=== PATIENT | female | born 1965 | race Caucasian/White ===

== ENCOUNTER → 2020-07-17 | Outpatient (CLI) | payer BC ==
[2020-07-17 10:59] LABS: HEMOGLOBIN 14.8 gm/dl (12.3-15.3); RED BLOOD COUNT 5.14 M/UL (4.00-5.10); WHITE BLOOD COUNT 8.6 K/UL (4.5-11.0)
[2020-07-17 11:21] LABS: BUN/CREATININE RATIO 18 (0-10)
== END ==
LOC: LAB 10:38
PROVIDERS: Family Medicine
DX: J18.9 Pneumonia, unspecified organism (principal)
CPT/HCPCS: 36415; 80048; 85025

== ENCOUNTER → 2021-10-11 | Outpatient (CLI) | payer BC | LOC: RAD 09:00 | DX: K91.0 Vomiting following gastrointestinal surgery (principal) | CPT/HCPCS: 74246 ==